=== PATIENT | male | born 1970 | race Caucasian/White ===

== ENCOUNTER 2019-04-05 17:15 | Emergency (ER) | payer SELFPAY ==
--- NOTE | 2019-04-05 18:24 | ER Document Report ---
ED Medical Screen (RME) - General Chief Complaint: Abscess Stated Complaint: ABSCESS/BUTTOCKS Time Seen by Provider: 04/05/19 18:22 Notes: 48 y/o male presents for 2-3 abscesses to middle of buttock. One has been for 2 weeks, other one has been there for 1 weeks. Associated subjective fever. Taking tylenol motrin. Drainage from 1 abscess that has improved. Denies history of HIV/diabetes. Denies previous history of abscesses. I have greeted and performed a rapid initial assessment of this patient. A comprehensive ED assessment and evaluation of the patient, analysis of test results and completion of the medical decision making process with be conducted by additional ED providers. TRAVEL OUTSIDE OF THE [place] IN LAST 30 DAYS: No Past Medical History - Past Medical History Cardiac Medical History: Reports: Hx Hypertension Past Surgical History: Reports: Hx Orthopedic Surgery - neck, rt shoulder - Immunizations Hx Diphtheria, Pertussis, Tetanus Vaccination: Yes
[2019-04-05] MEDS ORDERED: IBUPROFEN 800 MG TABLET PO ONE (18:25)
[2019-04-05 19:41] LABS: ABSOLUTE BASOPHILS # (AUTO) 0.1 10^3/uL (0.0-0.2); ABSOLUTE EOSINOPHILS # (AUTO) 0.3 10^3/uL (0.0-0.6); ABSOLUTE LYMPHOCYTES (AUTO) 2.5 10^3/uL (0.5-4.7); ABSOLUTE MONOCYTES (AUTO) 1.3 10^3/uL (0.1-1.4); ABSOLUTE NEUT (AUTO) 9.3 10^3/uL (1.7-8.2); BASOPHILS % (AUTO) 0.5 % (0-2); EOSINOPHILS % (AUTO) 2.2 % (0-6); HEMATOCRIT 43.4 % (37.9-51.0); HEMOGLOBIN 14.7 g/dL (13.5-17.0); LYMPHOCYTES % (AUTO) 18.8 % (13-45); MEAN CORPUSCULAR HEMOGLOBIN 29.9 pg (27.0-33.4); MEAN CORPUSCULAR HGB CONC 33.8 g/dL (32.0-36.0); MEAN CORPUSCULAR VOLUME 88 fl (80-97); MONOCYTES % (AUTO) 9.8 % (3-13); PLATELET COUNT 363 10^3/uL (150-450); RED BLOOD COUNT 4.91 10^6/uL (4.35-5.55); RED CELL DISTRIBUTION WIDTH 13.2 % (11.5-14.0); SEGMENTED NEUTROPHILS % (AUTO) 68.7 % (42-78); TOTAL CELLS COUNTED % (AUTO) 100 %; WHITE BLOOD COUNT 13.5 10^3/uL (4.0-10.5)
[2019-04-05 20:00] LABS: ALBUMIN 4.5 g/dL (3.5-5.0); ALKALINE PHOSPHATASE 65 U/L (38-126); ANION GAP 9 (5-19); ASPARTATE AMINO TRANSFERASE 30 U/L (17-59); BILIRUBIN,TOTAL 0.5 mg/dL (0.2-1.3); BLOOD UREA NITROGEN 22 mg/dL (7-20); CALCIUM 9.8 mg/dL (8.4-10.2); CARBON DIOXIDE 31 mmol/L (22-30); CHLORIDE 101 mmol/L (98-107); GLUCOSE 82 mg/dL (75-110); POTASSIUM 4.3 mmol/L (3.6-5.0); TOTAL PROTEIN 8.2 g/dL (6.3-8.2)
[2019-04-05] MEDS ORDERED: LIDOCAINE 1%/EPINEPHRINE INJ 20 ML VIAL INJ ONE (21:44)
[2019-04-05] MEDS ORDERED: HYDROMORPHONE HCL INJ/PF 2 MG/ML AMPULE IM ONE (21:45)
[2019-04-05] MEDS ORDERED: PROMETHAZINE HCL 25 MG TABLET PO ONE (21:45)
[2019-04-05] MEDS ORDERED: CEPHALEXIN 500 MG CAPSULE PO ONE (21:45)
[2019-04-05] MEDS ORDERED: SULFAMETHOXAZOLE/TRIMETHOPRIM 800-160 MG TABLET PO ONE (21:45)
--- NOTE | 2019-04-05 21:47 | ER Document Report ---
ED Skin Rash/Insect Bite/Abscs - General Chief Complaint: Abscess Stated Complaint: ABSCESS/BUTTOCKS Time Seen by Provider: 04/05/19 18:22 Notes: Patient is a 48-year-old male that comes emergency department for chief complaint of 2 weeks of infected areas at the left buttock. He states 1 areas on the top of the left buttock, the other one is in the mid cheek over the medial aspect. He states he had a third 1 in between these but this 1 drained and resolved. He denies any abscesses or pain down near the perineum or rectum, he has no pain with bowel movements. He denies abdominal pain, nausea or vomiting. He states he did start getting chills and a fever. He does not have a history of abscesses, denies history of diabetes or IV drug abuse. Past medical history of hypertension, CAD, cardiac stent. He is a rear load truck driver. He does follow with primary care. He reports his tetanus is up-to-date within 5 years. TRAVEL OUTSIDE OF THE [place] IN LAST 30 DAYS: No - Related Data Allergies/Adverse Reactions: Penicillins Allergy (Verified 04/05/19 18:25) Home Medications: blood pressure medications-unknown Past Medical History - General Information source: Patient - Social History Smoking Status: Never Smoker Frequency of alcohol use: None Drug Abuse: None Lives with: Family Family History: CAD, CVA, DM, Hypertension Patient has suicidal ideation: No Patient has homicidal ideation: No - Past Medical History Cardiac Medical History: Reports: Hx Coronary Artery Disease, Hx Hypertension Past Surgical History: Reports: Hx Orthopedic Surgery - neck, rt shoulder - Immunizations Hx Diphtheria, Pertussis, Tetanus Vaccination: Yes Review of Systems - Review of Systems Constitutional: See HPI EENT: No symptoms reported Cardiovascular: No symptoms reported Respiratory: No symptoms reported Gastrointestinal: No symptoms reported Genitourinary: No symptoms reported Male Genitourinary: No symptoms reported Musculoskeletal: No symptoms reported Skin: See HPI Hematologic/Lymphatic: No symptoms reported Neurological/Psychological: No symptoms reported Physical Exam - Vital signs Vitals: Pulse Resp BP Pulse Ox 86 20 188/108 H 97 04/05/19 18:19 04/05/19 18:19 04/05/19 18:19 04/05/19 18:19 - Notes Notes: GENERAL: Alert, interacts well. No acute distress. HEAD: Normocephalic, atraumatic. EYES: Pupils equal, round, and reactive to light. Extraocular movements intact. ENT: Oral mucosa moist, tongue midline. Oropharynx unremarkable. Airway patent. LUNGS: Clear to auscultation bilaterally, no wheezes, rales, or rhonchi. No respiratory distress. HEART: Regular rate and rhythm. No murmur ABDOMEN: Soft, non-tender. Non-distended. GENITOURINARY: No swelling or tenderness noted. EXTREMITIES: Moves all 4 extremities spontaneously. No edema, normal radial and dorsalis pedis pulses bilaterally. No cyanosis. BACK: no cervical, thoracic, lumbar midline tenderness. No saddle anesthesia, normal distal neurovascular exam. Moves all extremities in full range of motion. NEUROLOGICAL: Alert and oriented x3. Normal speech. Cranial nerves II through XII grossly intact. PSYCH: Normal affect, normal mood. SKIN: There is a large pilonidal cyst abscess with some surrounding erythema and tenderness with a fluctuant head on the left upper gluteal cleft. In addition to this in the mid gluteal cleft on the left there is a fluctuant and indurated abscess with some mild surrounding cellulitis. There is no cellulitis or tenderness tracking down towards the rectal or perirectal area, there is no tenderness of the perineum. Course - Re-evaluation Re-evalutation: Patient with a pilonidal cyst abscess, abscess at the gluteal cleft, and a fever. Mild leukocytosis. Lactic acid is normal. Vital signs are normal otherwise. Patient is not a diabetic. He is actually quite nontoxic and well- appearing. He has no tamika-anal abscess or tracking cellulitis towards the perineum or genitals. There appears to be discrete areas of cellulitis with abscesses in the mentioned locations but no other concerning findings. No other concerning symptoms reported. Patient is requesting incision and drainage and discharge. Incision and drainage performed on both, pilonidal cyst abscess was extremely fluctuant and was packed because this was very deep, I strongly urged patient to return within 2 days for replacement of packing and for recheck, he is placed on antibiotics, he is supposed to return sooner if he develops any worsening symptoms and these were discussed in detail. Patient states understanding and agreement. Stable at time of discharge. - Vital Signs Vital signs: Temp Pulse Resp BP Pulse Ox 98.6 F 71 16 134/82 H 99 04/05/19 23:30 04/05/19 23:30 04/05/19 23:30 04/05/19 23:30 04/05/19 23:30 - Laboratory Result Diagrams: 04/05/19 19:16 04/05/19 19:16 Laboratory results interpreted by me: 04/05/19 04/05/19 19:16 19:16 WBC 13.5 H Absolute Neuts (auto) 9.3 H Carbon Dioxide 31 H BUN 22 H Procedures - Incision and Drainage Left sided pilonidal cyst abscess Type: Single Anesthetic type: 1% Lidocaine w/epi mL's of anesthetic: 6 Blade size: 11 I&D procedure: Chlorprep applied, Shurclens applied, Iodoform packing placed, Sterile dressing applied Incision Method: Incision made by scalpel Amount/type of drainage: Copious amount of purulent drainage Left mid gluteal abscess Type: Single Anesthetic type: 1% Lidocaine w/epi mL's of anesthetic: 4 Blade size: 11 I&D procedure: Chlorprep applied, Shurclens applied, Sterile dressing applied Incision Method: Incision made by scalpel Amount/type of drainage: About 3 cc of purulent drainage, small amount of blood Discharge - Discharge Clinical Impression: Abscess Fever Qualifiers: Fever type: unspecified Qualified Code(s): R50.9 - Fever, unspecified Condition: Stable Disposition: HOME, SELF-CARE Additional Instructions: The abscesses have been drained. Keep area clean, clean with soap and water, keep absorbent dressing of the area. The packing needs to be removed in 2 to 3 days, I recommend you either be seen by her primary care provider or return here for recheck in 2 to 3 days and to have the packing replaced. Take the antibiotics as prescribed, take the pain medication if needed. Return if you worsen including spreading area of redness, increased pain, spiking fevers, vomiting, or any other concerning or worsening symptoms. Prescriptions: Sulfamethoxazole/Trimethoprim [Bactrim Ds Tablet] 1 each PO BID #14 tablet Cephalexin Monohydrate [Keflex 500 mg Capsule] 500 mg PO QID #28 capsule Oxycodone HCl/Acetaminophen [Percocet 5-325 mg Tablet] 1 - 2 tab PO TID PRN #15 tablet PRN Reason: Forms: Return to Work
[2019-04-05] MEDS ORDERED: HYDROCODONE/ACETAMINOPHEN 5-325 MG (6 TAB/ER DISP) PO PRN (23:18)
[2019-04-05 23:31] VITALS: BP 134/82
== END 2019-04-05 23:30 | disposition home or self-care (01) ==
LOC: ER 17:15
DX: L05.01 Pilonidal cyst with abscess (principal); L02.31 Cutaneous abscess of buttock; R50.9 Fever, unspecified; I10 Essential (primary) hypertension; Z88.0 Allergy status to penicillin
CPT/HCPCS: 99283; 96372; 36415; 87040; 83605; 85025; 80053; 10080; J3490; J1170

== ENCOUNTER 2019-06-16 09:34 | Emergency (ER) | payer SELFPAY ==
[2019-06-16] MEDS ORDERED: LIDOCAINE 1%/EPINEPHRINE INJ 20 ML VIAL INJ ONE (09:51)
--- NOTE | 2019-06-16 09:54 | ER Document Report ---
ED Skin Rash/Insect Bite/Abscs - General Chief Complaint: Abscess Stated Complaint: ABSCESS Time Seen by Provider: 06/16/19 09:42 Primary Care Provider: SONJA YANG PA-C [[facility] [employer]] - Follow up in 3-5 days Notes: Patient is a 48-year-old male with history of abscesses who presents emergency department with an abscess to his left medial low back. He noticed it 2 days ago and his primary care provider put him on clindamycin. Patient states that he had a fever on Friday, but does not have a fever at this time. States that the abscess is getting bigger even being on the clindamycin. Patient denies history of diabetes. He has a history of an SD 3 years ago. TRAVEL OUTSIDE OF THE [place] IN LAST 30 DAYS: No - Related Data Allergies/Adverse Reactions: Penicillins Allergy (Verified 06/16/19 09:43) Home Medications: Plavix 75mg daily. Losartan 50mg BID. Singulair 10mg daily. Norvasc 5mg daily. Cleocin 300mg QID. Zyrtec 10mg daily Past Medical History - General Information source: Patient - Social History Smoking Status: Never Smoker Chew tobacco use (# tins/day): Yes Frequency of alcohol use: None Drug Abuse: None Family History: CAD, CVA, DM, Hypertension Patient has suicidal ideation: No Patient has homicidal ideation: No - Past Medical History Cardiac Medical History: Reports: Hx Coronary Artery Disease, Hx Hypertension Past Surgical History: Reports: Hx Orthopedic Surgery - neck, rt shoulder - Immunizations Hx Diphtheria, Pertussis, Tetanus Vaccination: Yes Review of Systems - Review of Systems Notes: REVIEW OF SYSTEMS: CONSTITUTIONAL : Denies recent illness. Denies recent unintentional weight loss. See HPI. EENT: Denies eye, ear, throat, or mouth pain, discharge, or symptoms. Denies nasal or sinus congestion. CARDIOVASCULAR: Denies chest pain. RESPIRATORY: Denies shortness of breath, cough, congestion, difficulty breathing, or wheezing. GASTROINTESTINAL: Denies nausea, vomiting, and diarrhea. Denies abdominal pain. Denies constipation. GENITOURINARY: Denies difficulty urinating, burning, blood in urine, urgency or frequency. MUSCULOSKELETAL: Denies neck and back pain. Denies joint pain or swelling. SKIN: See HPI. HEMATOLOGIC : Denies easy bruising or bleeding. LYMPHATIC: Denies swollen, painful, enlarged glands. NEUROLOGICAL: Denies no numbness or tingling denies weakness. Denies headache. Denies altered mental status. Denies alteration in speech. PSYCHIATRIC: Denies stress, anxiety, alteration in sleep patterns, or depression. All other systems reviewed and negative. Physical Exam - Vital signs Vitals: Temp Pulse Resp BP Pulse Ox 98.5 F 76 18 180/96 H 98 06/16/19 09:39 06/16/19 09:39 06/16/19 09:39 06/16/19 09:39 06/16/19 09:39 - Notes Notes: PHYSICAL EXAMINATION: GENERAL: Appears well, healthy, well-nourished, no acute distress. HEAD: Normocephalic, atraumatic. EYES: PERRL, conjunctiva normal, all extraocular movements intact, sclera nonicteric ENT: Moist mucous membranes. NECK: Supple, no noticeable swelling, redness, rash. Normal range of motion. LUNGS: Equal breath sounds bilaterally and clear to auscultation. No wheezes rales or rhonchi. CARDIOVASCULAR: S1-S2, regular rate, regular rhythm. Radial pulses 2+, normal. ABDOMEN: Normoactive bowel sounds. Soft, nontender, no guarding, no rebound tenderness, and no masses palpated. EXTREMITIES: Normal strength and range of motion, no pitting or edema. No cyanosis. NEUROLOGICAL: Moves all extremities upon command. Strength 5/5 in all extremities. PSYCH: Normal mood, normal affect. SKIN: Warm, dry. Abscess noted to medial left lower back. Normal skin turgor. Course - Re-evaluation Re-evalutation: 06/16/19 10:46 Abscess was drained here in the emergency department. Patient tolerated procedure well. Patient will continue his clindamycin given to him by his primary care provider. I have a low suspicion for necrotizing fasciitis. Follow-up precautions were given. Verbal discharge instructions were given to the patient. They verbalized understanding. They are stable for discharge. - Vital Signs Vital signs: Temp Pulse Resp BP Pulse Ox 98.5 F 76 18 180/96 H 98 06/16/19 09:39 06/16/19 09:39 06/16/19 09:39 06/16/19 09:39 06/16/19 09:39 - Laboratory Result Diagrams: 06/16/19 10:07 04/15/20 10:07 Laboratory results interpreted by me: 06/16/19 10:07 WBC 13.3 H Absolute Neuts (auto) 9.2 H Procedures - Incision and Drainage Left Anterior Back Type: Simple, Single Anesthetic type: 1% Lidocaine w/epi mL's of anesthetic: 6 Blade size: 11 I&D procedure: Shurclens applied, Iodoform packing placed, Sterile dressing applied Incision Method: Incision made by scalpel Amount/type of drainage: 20 mls/blood and purulent drainage Discharge - Discharge Clinical Impression: Abscess Condition: Stable Disposition: HOME, SELF-CARE Instructions: Abscess ([facility]), Post Incision and Drainage Additional Instructions: You were seen for an abscess that required drainage. Please clean this area with soap and water twice daily and apply a topical antibiotic. Dress the area after each cleaning. Continue your clindamycin. Please return if you develop fever, vomiting, the pain at the site worsens, you notice spreading redness from the area, or you have any other symptoms that are concerning to you. Take the [place] for extreme pain. Follow-up with your primary care provider in regards to this visit. Referrals: SONAJ YANG PA-C [[facility] [employer]] - Follow up in 3-5 days
[2019-06-16 10:31] LABS: ABSOLUTE BASOPHILS # (AUTO) 0.1 10^3/uL (0.0-0.2); ABSOLUTE EOSINOPHILS # (AUTO) 0.4 10^3/uL (0.0-0.6); ABSOLUTE LYMPHOCYTES (AUTO) 2.3 10^3/uL (0.5-4.7); ABSOLUTE MONOCYTES (AUTO) 1.3 10^3/uL (0.1-1.4); ABSOLUTE NEUT (AUTO) 9.2 10^3/uL (1.7-8.2); BASOPHILS % (AUTO) 0.7 % (0-2); HEMATOCRIT 39.8 % (37.9-51.0); HEMOGLOBIN 13.6 g/dL (13.5-17.0); LYMPHOCYTES % (AUTO) 17.4 % (13-45); MEAN CORPUSCULAR HEMOGLOBIN 30.3 pg (27.0-33.4); MEAN CORPUSCULAR HGB CONC 34.2 g/dL (32.0-36.0); MEAN CORPUSCULAR VOLUME 89 fl (80-97); MONOCYTES % (AUTO) 9.7 % (3-13); PLATELET COUNT 348 10^3/uL (150-450); RED BLOOD COUNT 4.49 10^6/uL (4.35-5.55); RED CELL DISTRIBUTION WIDTH 13.6 % (11.5-14.0); SEGMENTED NEUTROPHILS % (AUTO) 69.2 % (42-78); TOTAL CELLS COUNTED % (AUTO) 100 %; WHITE BLOOD COUNT 13.3 10^3/uL (4.0-10.5)
[2019-06-16] MEDS ORDERED: HYDROCODONE/ACETAMINOPHEN 5-325 MG (6 TAB/ER DISP) PO PRN (10:47)
[2019-06-16 10:55] LABS: ALBUMIN 4.3 g/dL (3.5-5.0); ALKALINE PHOSPHATASE 65 U/L (38-126); ANION GAP 6 (5-19); ASPARTATE AMINO TRANSFERASE 32 U/L (17-59); BILIRUBIN,TOTAL 0.6 mg/dL (0.2-1.3); BLOOD UREA NITROGEN 18 mg/dL (7-20); CALCIUM 9.9 mg/dL (8.4-10.2); CARBON DIOXIDE 28 mmol/L (22-30); CHLORIDE 105 mmol/L (98-107); GLUCOSE 102 mg/dL (75-110); POTASSIUM 4.2 mmol/L (3.6-5.0); TOTAL PROTEIN 7.8 g/dL (6.3-8.2)
[2019-06-16 11:03] VITALS: BP 148/86
== END 2019-06-16 11:03 | disposition home or self-care (01) ==
LOC: ER 09:34
PROC: 0H96XZZ Drainage of Back Skin, External Approach (ICD-10-PCS; principal; 2019-06-16)
DX: L02.212 Cutaneous abscess of back [any part, except buttock and flank] (principal); Z88.0 Allergy status to penicillin; Z79.899 Other long term (current) drug therapy; I25.10 Atherosclerotic heart disease of native coronary artery without angina pectoris
CPT/HCPCS: 99283; 36415; 83605; 85025; 80053; 10060; J3490

== ENCOUNTER 2019-06-19 06:28 | Emergency (ER) | payer OTHER ==
--- NOTE | 2019-06-19 07:31 | RADIOLOGY REPORT (SQ) ---
EXAM DESCRIPTION: XR HUMERUS COMPLETED DATE/TME: 06/19/2019 06:41 CLINICAL HISTORY: 48 years, Male, PAIN COMPARISON: None. FINDINGS: 2 views of the left humerus. No acute fracture or dislocation. Normal osseous mineralization. No radiopaque foreign body. IMPRESSION: 1. No acute fracture or dislocation. copyright 2010 [employer]- All Rights Reserved
--- NOTE | 2019-06-19 07:31 | RADIOLOGY REPORT (SQ) ---
EXAM DESCRIPTION: XR SHOULDER 2 OR MORE VIEWS COMPLETED DATE/TME: 06/19/2019 06:40 CLINICAL HISTORY: 48 years, Male, PAIN COMPARISON: None. FINDINGS: 3 views of the left shoulder. No acute fracture or dislocation. Normal osseous mineralization. No acute abnormalities of visualized left ribs. Degenerative change of the left acromioclavicular joint. IMPRESSION: 1. No acute fracture or dislocation. copyright 2010 [employer]- All Rights Reserved
[2019-06-19] MEDS ORDERED: HYDROCODONE/ACETAMINOPHEN 5-325 MG (6 TAB/ER DISP) PO PRN (07:45)
[2019-06-19] MEDS ORDERED: KETOROLAC TROMETHAMINE 60 MG/2 ML SDV IM ONE (07:45)
--- NOTE | 2019-06-19 07:45 | ER Document Report ---
HPI - HPI Pain Level: 3 Context: Patient is a 48-year-old male that comes emergency department for chief complaint of injury to the left arm and shoulder. He states he was on a 4 olsen, struck an object on the ground, the 4 olsen popped up, he hyperextended his left shoulder forwards and then jerked backwards, he states afterwards he started having a lot of pain. He states that he cannot raise his left arm over his head now. He denies numbness, he denies any impact injury, he denies any other complaints. This happened last night. He is on Plavix, has a history of CAD and CABG. - REPRODUCTIVE Reproductive: DENIES: : Past Medical History - General Information source: Patient - Social History Smoking Status: Current Every Day Smoker Drug Abuse: None Lives with: Family Family History: CAD, CVA, DM, Hypertension Patient has suicidal ideation: No Patient has homicidal ideation: No - Past Medical History Cardiac Medical History: Reports: Hx Coronary Artery Disease, Hx Hypertension Past Surgical History: Reports: Hx Orthopedic Surgery - neck, rt shoulder - Immunizations Hx Diphtheria, Pertussis, Tetanus Vaccination: Yes Vertical Provider Document - CONSTITUTIONAL General Appearance: WD/WN, No Apparent Distress - INFECTION CONTROL TRAVEL OUTSIDE OF THE [place] IN LAST 30 DAYS: No - HEENT HEENT: Atraumatic, Normal ENT Exam, Normocephalic - NECK Neck: Normal Inspection - RESPIRATORY Respiratory: Breath Sounds Normal, No Respiratory Distress, Chest Non-Tender - CARDIOVASCULAR Cardiovascular: Regular Rate, Regular Rhythm - GI/ABDOMEN Gastrointestinal: Abdomen Soft, Abdomen Non-Tender. negative: Abdomen Tender - BACK Back: Normal Inspection - Non-tender back generally on palpation. No midline tenderness, no saddle anesthesia, no signs of trauma. Normal upper and lower extremity range of motion, normal strength, normal distal neurovascular exam. - MUSCULOSKELETAL/EXTREMETIES Musculoskeletal/Extremeties: MAEW, FROM, Tender - Tenderness over the left shoulder at the supraspinatus, posterior trapezius, and also over the tricep muscles. Able to move elbow and full range of motion, normal marine insulator, normal distal neurovascular exam. Unable to abduct the arm or raise the arm over the head. - NEURO Level of Consciousness: Awake, Alert, Appropriate Motor/Sensory: No Motor Deficit, No Sensory Deficit - DERM Integumentary: Warm, Dry, No Rash Course - Re-evaluation Re-evalutation: X-rays negative. Evaluation is consistent with over extension and strain of the shoulder, injury of the rotator cuff, pain over the left trapezius muscle, pain over the tricep. No neurovascular compromise. No impact injury. No other concerning findings reported or noted. I suspect rotator cuff injury and muscle strain. Discussed management, follow-up, return precautions. Patient states understanding and agreement with plan. Procedures - Immobilization left arm Pre-Proc Neuro Vasc Exam: Normal Immobilizer type: Sling Performed by: RN Post-Proc Neuro Vasc Exam: Normal Alignment checked and good: Yes Discharge - Discharge Clinical Impression: Left arm pain Injury of left shoulder Qualifiers: Encounter type: initial encounter Qualified Code(s): S49.92XA - Unspecified injury of left shoulder and upper arm, initial encounter Condition: Stable Disposition: HOME, SELF-CARE Additional Instructions: Your x-rays are normal. Based on your exam and injury in addition to muscle strain I am concerned that you have injured your rotator cuff. I recommend that you ice the area 3-4 times a day, wear the sling, remember to take out the arm and perform the pendulum and wall motions as I discussed. Take the muscle relaxer as prescribed. Take your pain medication if needed. Follow-up with the orthopedics referral, call for your appointment. Return if you worsen including severe worsening swelling or pain, numbness, or any other concerning symptoms. Prescriptions: Methocarbamol [Robaxin-750] 750 mg PO QID PRN #20 tablet PRN Reason: Forms: Return to Work Referrals: DIANA GUO MD [ACTIVE STAFF] - Follow up in 1 week
[2019-06-19 08:06] VITALS: BP 141/101
== END 2019-06-19 08:27 | disposition home or self-care (01) ==
LOC: ER 06:28
DX: S49.92XA Unspecified injury of left shoulder and upper arm, initial encounter (principal); M79.602 Pain in left arm; V86.59XA Driver of other special all-terrain or other off-road motor vehicle injured in nontraffic accident, initial encounter; Y93.89 Activity, other specified; Y92.821 Forest as the place of occurrence of the external cause; F17.200 Nicotine dependence, unspecified, uncomplicated; I25.10 Atherosclerotic heart disease of native coronary artery without angina pectoris; I10 Essential (primary) hypertension
CPT/HCPCS: 99283; 96372; 73060; 73030; J1885